=== PATIENT | male | born 1980 | race Caucasian/White ===

== ENCOUNTER 2025-01-12 10:07 | Outpatient (CLI) | payer BC, SELFPAY | END 2025-01-12 10:08 | disposition home or self-care (01) | LOC: MRI 10:08 | PROVIDERS: PCP Physician Assistant Medical; Visit Provider Physician Assistant Surgical | DX: M25.561 Pain in right knee (principal); S83.521A Sprain of posterior cruciate ligament of right knee, initial encounter; S83.411A Sprain of medial collateral ligament of right knee, initial encounter; S83.241A Other tear of medial meniscus, current injury, right knee, initial encounter; M25.461 Effusion, right knee; S89.91XA Unspecified injury of right lower leg, initial encounter | CPT/HCPCS: 73721 ==

== ENCOUNTER 2025-01-19 11:15 | Day surgery (SDC) | payer BC, SELFPAY ==
[2025-01-19] VITALS (18 sets, daily range): BP systolic 123–177; BP diastolic 77–102; PULSE 61–90; RESP 14–20; TEMP 35.8–37.1; O2SAT 95–100; BMI 26.5
--- NOTE | 2025-01-19 12:09 | W.PM.H&PU ---
History & Physical Update History & Physical Update H&P Reviewed and patient assessed: No changes noted
[2025-01-19] MEDS: SODIUM CHLORIDE 0.9 % (FLUSH) 10 ML SYRINGE IVF (12:10)
[2025-01-19] MEDS: LACTATED RINGERS 1000 ML 1,000 ML 100 ML IV (12:10)
[2025-01-19] MEDS: fentaNYL 100 MCG/2 ML inj IVP (13:00)
[2025-01-19] MEDS: MIDAZOLAM HCL 1 MG/ML inj IVP (13:00)
--- NOTE | 2025-01-19 13:07 | SUR.PREOP ---
TIME?OUT:?1255, right knee PT/RN/MDA?VERIFICATION?OF?SURGICAL?SITE,?PROCEDURE,?AND?CONSENT OBTAINED?PRIOR?TO?INVASIVE?PROCEDURE.
--- NOTE | 2025-01-19 13:16 | P.NB_ITS ---
Nerve Block Nerve Block Time Seen by Provider: 13:00 Date Seen: 01/19/25 Type of block requested by surgeon for post-operative analgesia: popliteal Side: right Time out performed: Yes Verification of patient name: Yes Verification of date of : Yes Site marking: site marked Name of person performing procedure: Jamaal Continuous monitoring Was continuous monitoring of O2 sat, B/P, professional shopper, recorded every 15 minutes?: Yes Procedure Checklist: sterile prep, needles and gloves Ultrasound guided. Images saved: Yes Medications given in 5ml increments after negative aspiration: Ropivicaine %: 0.5 mL: 20 Needle gauge: 22 Patient tolerated procedure well: Yes Additional comments: Needle noted adjacent to nerve Block Charges Block Charge (with Pro Fee): Sciatic Nerve Use of Ultrasound Machine for Block: Yes- US Guidance/pain block
--- NOTE | 2025-01-19 13:16 | P.NB_ITS ---
Nerve Block Nerve Block Time Seen by Provider: 13:00 Date Seen: 01/19/25 Type of block requested by surgeon for post-operative analgesia: femoral Side: right Time out performed: Yes Verification of patient name: Yes Verification of date of : Yes Site marking: site marked Name of person performing procedure: Jamaal Continuous monitoring Was continuous monitoring of O2 sat, B/P, court recording monitor, recorded every 15 minutes?: Yes Procedure Checklist: sterile prep, needles and gloves Ultrasound guided. Images saved: Yes Medications given in 5ml increments after negative aspiration: Ropivicaine %: 0.5 mL: 15 Needle gauge: 20 Precedex (mcg): 25 Patient tolerated procedure well: Yes Additional comments: Needle noted adjacent to nerve Block Charges Block Charge (with Pro Fee): Femoral Nerve Use of Ultrasound Machine for Block: Yes- US Guidance/pain block
[2025-01-19] MEDS: CEFAZOLIN 2 GM in 0.9 % SODIUM CHLORIDE Mini-bag 100 ML IVPB (14:07)
[2025-01-19] MEDS: TRANEXAMIC ACID 100 MG/ML INJ 1000 MG IV (14:09)
[2025-01-19] MEDS: Heparin 30,000 units/30 ml 30000 UNIT TOPICAL (14:20)
--- NOTE | 2025-01-19 15:46 | CRLHL7_ITS ---
For Patients: As a result of the Century Cures Act, medical imaging exams and procedure reports are released immediately into your electronic medical record. You may view this report before your referring provider. If you have questions, please contact your health care provider. Indication: ACL reconstruction Technique: One fluoroscopic image of the right knee. Fluoroscopic time 5.1 seconds. IMPRESSION: Fluoroscopic guidance for ACL reconstruction. Dictated by Ivan Lisa MD @ 01/21/2025 8:02:05 AM (Electronically Signed)
--- NOTE | 2025-01-19 18:04 | P.ORPRC_ITS ---
Procedure Note Date of procedure: 01/19/25 Procedure: PREOPERATIVE DIAGNOSIS: 1. Right knee ACL tear, acute, traumatic 2. Right knee MCL (extra-articular) tear, acute, complete from the femoral attachment, traumatic 3. Right knee lateral meniscus bucket-handle tear, acute, traumatic POSTOPERATIVE DIAGNOSIS: 1. Right knee ACL tear, acute, traumatic 2. Right knee MCL (extra-articular) tear, acute, complete from the femoral attachment, traumatic 3. Right knee lateral meniscus bucket-handle tear, acute, traumatic 4. Right knee medial meniscus posterior horn to midbody tear, acute, traumatic 5. Right knee posterior oblique ligament (extra-articular) tear, acute, traumatic PROCEDURE: 1. Right knee ACL arthroscopic reconstruction with independent tunnel drilling (quad tendon autograft with internal brace) 2. Bone graft/bone marrow concentrate harvest from proximal tibia via separate incision (60ml aspirated) 3. Right knee open MCL repair (extra-articular ligament #1) 4. Right knee open posterior oblique ligament repair (extra-articular ligament #2) 5. Right knee inside-out lateral meniscus repair of bucket-handle tear, complex repair 6. Right knee arthroscopic all inside medial meniscus repair SURGEON: Driss Gonzalez M.D. PATTERN WHEEL MAKER: Bhaskar Todd PA-C; Annabelle Paulino PA-C. Of note, assistants were critical for this case to aid in patient positioning, knee manipulation, instrument exchange, graft preparation, camera assistance, bone graft harvest, and closure. ANESTHESIA: Spinal plus regional block EBL: 100 mL TOURNIQUET: 120 minutes minutes at 260 torr IMPLANTS: Arthrex tight rope femoral button + button insurance account executive; Arthrex tibial ABS button; Arthrex 4.75 mm peek SwiveLock suture anchor (x2); Allosync Pure demineralized bone matrix; Arthrex Knee FiberTak anchor (x2); Arthrex all-inside fiber stitch meniscus repair device/implant (x2.... 3 were used, but 1 pulled out and therefore only 2 remained in the knee) COMPLICATIONS: None evident INDICATIONS: The patient is a pleasant 44-year-old male. They experienced a right knee trauma from a downhill skiing accident within the last 1-2 weeks. There seen in clinic. There is concern for ACL tear and MCL sprain. MRI was obtained. This confirmed the ACL, MCL, but also lateral meniscus bucket-handle tear and suspicion of a medial meniscus tear. In addition, the bucket-handle tear was flipped into the notch and therefore blocking the patient's motion consistent with a stuck knee. Therefore, surgery was indicated in a timely fashion to reconstruct the ACL, repair the MCL, repair any other meniscus tissue that could be repaired. FINDINGS: Exam under anesthesia revealed positive Blair's showing grade 2 B. Positive pivot shift. Negative dial test at 30 or 90? (symmetric). Anteromedial drawer with external rotation was slightly more unstable compared to contralateral side. Grade 3 valgus opening at 30? and notable opening even at 0? of extension. The diagnostic arthroscopy showed grade 3 chondral defect medial femoral condyle anteriorly, appeared remote without loose bodies evident. Also grade 2-3 chondromalacia trochlear groove but relatively healthy articular cartilage patella. ACL was torn completely and fallen down the tibial surface. PCL was intact and robust. Lateral meniscus was torn in a bucket-handle manner and flipped into the notch. Upon reducing this, was found to have a double tear near the midbody to anterior horn corner. The medial meniscus was also torn near the posterior medial corner from the posterior horn to midbody junction. Some capsular injury was also seen in this posterior medial corner. DESCRIPTION OF PROCEDURE: After a thorough discussion of risks, benefits, and alternatives, the patient was brought to the operating room and placed upon the operating table. Induction of anesthesia was undertaken as previously noted. 2g IV Ancef was administered within 1 hr of incision preoperatively. Appropriate time-out was performed identifying proper patient, site, and procedure. The right lower extremity was prepped and draped in the appropriate sterile fashion using ChloraPrep. Prior to tourniquet inflation, a small incision was made just lateral to tibial tubercle with a 15 blade scalpel. The Arthrex Benoit bone marrow aspiration trocar was then inserted and directed posterior and slightly proximal. 60 mL bone marrow aspiration was completed in a heparinized syringe. The volume was drawn to total 60ml of fluid for centrifugation. This was then spun in a centrifuge and bone marrow concentrate later utilized. This concentrate was mixed with Allosync Pure DBM and the autograft bone captured in the graft net device from tunnel drilling. This mixture was eventually placed into the sockets that were created for the ACL graft, as described below. After the bone marrow aspiration, the limb was exsanguinated and tourniquet inflated. A transverse incision was made approximately 1 cm proximal to the superior pole of the patella. We excised the subcutaneous fat sharply. The quad tendon was then visualized from the patellar attachment all the way more proximal towards its muscular transition. A 10mm double blade was utilized to sharply incise the quad tendon from the superior pole of patella as it was directed more proximally. This was done under direct visualization. We released it from the patella and placed it through the quad pro tendon harvester. (A partial-thickness quad tendon graft was able to be harvested due to the robustness of the patient's quad.) This was turned in quarter turns slowly with proximal directed force. We passed this up approximately 68-70 mm of tendon. The tendon was then retrieved out the side hole and the quad pro cutting mechanism engaged with a robust quad tendon harvested of approximately that same target length. The quad was reapproximated with # 2-0 Stratafix in a running, locking fashion. Meanwhile, the graft was then prepared on the back table. Anterolateral and anteromedial portals were established with an 11 blade, and a diagnostic arthroscopy was performed. This identified the findings as noted above. Following the diagnostic arthroscopy[ the lateral meniscus tear was further identified, freshened with a combination of arthroscopic shaver and arthroscopic rasp, and prepared for repair. Of note, there was a double tear to this lateral meniscus at the midbody to anterior horn junction including a longitudinal tear at the meniscocapsular junction but also 1 in the more the red-white zone. Both were felt to be repairable. Therefore, decision was made for an inside-out approach. A longitudinal incision was made overlying the lateral aspect of the knee with 1/3 proximal and 2/3 distal to the joint line. This was immediately posterior to the fibular collateral ligament region at the proximal extent of the fibular head. Sharp incision through the skin and blunt dissection is subcutaneous tissue allowed identification of the ITB band and biceps femoris. This window was opened with a Metzenbaum scissors and the synovium dissected distally towards the fibular head. The gastrocnemius lateral head was identified and a retractor placed deep to this to separate the joint capsule from the gastr ocnemius. Excellent visualization of the lateral capsule was achieved through this approach. At least 10 separate long needle SutureTape double needle devices were passed with vertical mattress type of fixation of the lateral meniscus after it was reduced. We knew she had placed multiple sutures on superior surface. Some were also passed on the inferior surface. We were able to avoid the popliteal hiatus and avoid penetrating sutures and restricting the popliteus tendon itself. The meniscus was reprobed and found to be stable with excellent control from these sutures that were all captured through the posterior lateral approach and tied independently. Further inspection of the medial meniscus showed it was torn at the posterior horn to midbody junction near some capsular injury. 2 separate all inside fiber stitch suture devices were utilized to help stabilize and reapproximate this meniscus tissue to the posterior medial capsule. This was also reprobed and found to be stable. The remaining ACL graft fibers were debrided with the shaver. ACL tunnel creation/preparation was now undertaken. Thus, a FlipCutter was utilized with a 9.5 mm graft measured and thus the same size hole created in both the femur (9.5 mm) and tibia (9.5 mm) with separate guides for independent tunnel drilling technique. After preparing the graft and drilling the tunnels, the button was passed out the lateral femoral cortex and confirmed to be flipped and apposed against the cortex with C-arm fluoroscopic imaging. After the button was passed, we utilized the autograft/allograft mixture which included autograft bone captured from the ACL tunnel drilling with the Arthrex Graft Net, the bone marrow autograft obtained from the proximal tibial plateau from the original incision over the proximal anterolateral tibia with the trocar, and the Allosync Pure demineralized bone matrix. This mixture of autograft and allograft was passed into the ACL tunnels with a beveled cannula under direct visualization. Then, the ACL graft was passed without difficulty first into the femoral socket and finally dunked into the tibial socket. After cycling the knee 35+ times with tension on the tibial sutures, we secured the tibial side internal brace sutures with the knee in full extension utilizing the peek SwiveLock suture anchor after drilling this, tapping and placing the anchor. Thereafter, the tibial ABS button was applied and secured with the knee in approximately 5? of flexion and a slight posterior drawer applied. The knee again was cycled and complete tension finalized on the femoral side again with the knee at 5? of flexion and a posterior drawer applied. A Blair test was performed again, and found to be stable. The graft and the meniscus repair was reprobed on the inside of the knee and again found to be taut and stable. The shaver was also utilized to ensure all remaining bony debris was evacuated from the medial and lateral compartments as well as suprapatellar pouch and anything anterior to the ACL graft itself. We then turned our attention to the MCL open repair. The tourniquet was deflated at this stage as it was up for approximately 120 minutes. A cur vilinear incision was made from the medial femoral epicondyle distal approximately 6 cm from the joint line in line with the MCL course. Sharp incision through skin and blunt dissection to subcutaneous tissue allowed us to identify any crossing neurologic structures warranting for protection. The sartorial fascia was then identified, but found to be significantly traumatized. It was essentially ruptured from the mid axial line along the medial knee away from the patellar tendon retinacular attachments more anteriorly. More proximally it was traumatically from the posterior medial oblique ligament. We were able to split the sartorial fascia more proximally near the medial femoral epicondyle to identify the condyle for eventual repair. The MCL was identified distally to be quality and attached to the tibial site appropriately. We tracked this more proximally and found that indeed it was injured approximately 1-2 cm from the medial femoral epicondyle. 2 separate FiberTak suture anchors were placed within the medial femoral epicondylar region. The FiberTape that was in 1 of these anchors was placed just immediately proximal and posterior to the epicondyle itself so as to be isometric for the ventral reattachment on the tibial surface. This tape was passed deep to the sartorial fascia, deep to the pes tendons, and indeed split through the distal MCL so that we could drill, tapped, and placed our anchor. This was tension with the knee in approximately 20-30 degrees of flexion, a varus load, and neutral rotation to the tibia. The 2nd knee FiberTak anchor was placed just slightly distal and posterior. A separate SutureTape was passed in a mattress fashion through the torn distal fragment of the MCL and these tails were shuttled through the knotless mechanism on this FiberTak anchor allowing excellent reapproximation/proximal pole to the MCL fibers. The remaining MCL tear was then oversewn with the suture tape to help with stabilization and reapproximation. We also identified that the posterior medial capsule and posterior oblique ligament were traumatized. Reapproximation/repair of this extra-articular ligament was also performed with multiple SutureTapes in independent fashion. We retested the external rotation with anterior drawer and found this to be stable and consistent with the contralateral side at this stage. The sartorial fascia was reapproximated along its anterior traumatized split with 2-0 Stratafix an excellent reapproximation. A separate Stratafix was utilized to reapproximate the sartorial split that we had to do to identify the MCL injury more proximally. At this stage, thorough irrigation with normal saline was performed of all incision sites and even within the knee again. The scope was placed back inside the knee and final debridement was performed including final tension of the ACL with the knee in slight flexion. Closure was completed with 2-0 Vicryl, 2-0 Stratafix, and 4-0 Monocryl to close the subcutaneous and subcuticular layers. Dressings were applied, the patient awoken from anesthesia, and transferred to the PACU in stable condition. PLAN: 1. Toe-touch weightbear operative extremity. Crutch / walker ambulation assistance PRN until quad control present at which time may advance to weightbear as tolerated if brace locked in full extension when she is more alert. 2. Ice, acetominophen and/or ibuprofen, and oxycodone for pain as needed. 3. Knee range of motion and quad sets/straight leg raise regularly, guided by physical therapy. 4. Follow up with PA visit in 1-2 weeks for a wound check.
--- NOTE | 2025-01-19 18:20 | P.ANES_ITS ---
Anesthesia Charges Start Date/Time Anesthesia Start Date: 01/19/25 Anesthesia Start Time: 13:35 Stop Date/Time Anesthesia Stop Date: 01/19/25 Anesthesia Stop Time: 18:16 Coding CPT Codes CPT Codes: ANESTH KNEE JOINT SURGERY - 86640 ([id number]) P1 - NORMAL HEALTHY PATIENT, QZ - PROFESSOR OF BUSINESS ADMINISTRATION SVC W/O TRAUMA NURSE BY
--- NOTE | 2025-01-19 18:20 | W.ANESCHARGE ---
Anesthesia Charges Start Date/Time Anesthesia Start Date: 01/19/25 Anesthesia Start Time: 13:35 Stop Date/Time Anesthesia Stop Date: 01/19/25 Anesthesia Stop Time: 18:16 Coding CPT Codes CPT Codes: ANESTH KNEE JOINT SURGERY - 27558 ([id number]) P1 - NORMAL HEALTHY PATIENT, QZ - TAI CHI INSTRUCTOR SVC W/O LINE STAKER BY
--- NOTE | 2025-01-19 18:53 | SUR.PHASEI ---
patient met discharge criteria per anesthesia
[2025-01-19] MEDS: SENNOSIDES 1 TAB TABLET 2 TAB PO (20:28)
--- NOTE | 2025-01-19 21:50 | PC.NURSE ---
Pt discharged at 2101 via private vehicle driven by . IV removed prior to discharge with catheter tip intact. Discharge instructions reviewed prior to discharge with all questions answered. Pt reports he already has all prescription medications at home. Pt denied pain and nausea before discharge and was able to tolerate regular diet. VSS prior to discharge. Pt did void before discharge. Brace worn to RLE. Pt did report numbness after surgery due to block utilized though reported numbness was decreasing prior to discharge. All personal items removed from room prior to discharge.
--- NOTE | 2025-01-21 10:52 | PC.NURSE ---
Pt called saying he had horrible pain last night which wasn't covered by scheduled Tylenol and Oxy per DC orders. Spoke with THEE Torres to see if she would be okay with him taking an additional 5mg oxycodone PRN for HS pain. She agreed to this short term and hopes in next few days need for Oxycodone should reduce. Called Erich back and informed him he could take 1 additional 5mg oxycodone for overnight break through pain if needed and educated him DVT signs/symptoms and to see the ED if this is a concern. Informed him to call clinic Wednesday if he has further concerns about pain before his 01/30 follow up with THEE Alanis.
== END 2025-01-19 21:01 | disposition home or self-care (01) ==
LOC: OR 11:16 → MEDSURG 19:57
PROVIDERS: Visit Provider Orthopaedic Surgery Sports Medicine
PROC: (CPT 29888; principal; 2025-01-19 12:45)
DX: S83.511A Sprain of anterior cruciate ligament of right knee, initial encounter (principal); S83.411A Sprain of medial collateral ligament of right knee, initial encounter; S83.251A Bucket-handle tear of lateral meniscus, current injury, right knee, initial encounter; S83.241A Other tear of medial meniscus, current injury, right knee, initial encounter; S83.521A Sprain of posterior cruciate ligament of right knee, initial encounter; G89.18 Other acute postprocedural pain
CPT/HCPCS: 29888; 20902; 27409; 29883; 01400; 64445; 64447; 73560; 76000; 76942; A9270; C1713; J0690; J1100; J1644; J1885; J2250; J2405; J2704; J3010; J7120; L1833; Q4125

== ENCOUNTER 2025-03-09 13:35 | Outpatient (CLI) | payer BC, SELFPAY ==
--- NOTE | 2025-03-09 13:45 | MR_ITS ---
EXAM:? MRI OF THE LEFT WRIST CLINICAL INFORMATION: The patient is a 44-year-old with left wrist pain. Evaluate for cyst. PRIOR SURGERY: None reported. COMPARISON STUDIES: Comparison is made to prior radiographs dated 02/27/2025. TECHNICAL INFORMATION: Imaging was produced on a high-field, 1.5 Lissy MR scanner. Coronal T1, fat-suppressed proton-density, and gradient echo imaging of the left wrist was performed in addition to sagittal fat-suppressed proton- density imaging. Axial fat-suppressed proton-density imaging was performed in addition to axial proton-density imaging. FINDINGS: Osseous structures:? Fat-suppressed imaging of the distal radius and distal ulna shows no evidence for marrow edema or cortical injury. There is no evidence for fracture.? No evidence for acute bony abnormality of the carpal structures can be seen. There is no evidence for carpal fracture or abnormality in carpal alignment. The proximal metacarpal region is within normal limits. Articulations:? A mild to moderate effusion of the distal radioulnar joint can be seen. No effusions of the radiocarpal joint or midcarpal space are present. There is no erosive change to suggest inflammatory arthritis. The CMC joints are within normal limits. Triangular fibrocartilage:? The TFCC is intact. There is no evidence of partial or full-thickness tearing. Ligaments: ?The scapholunate and lunotriquetral ligaments are intact.? The remainder of the volar and dorsal ligaments appear intact. Musculotendinous structures:? The flexor tendons are intact and normal in appearance.? The extensor tendons are intact and normal in appearance. Neurovascular structures:? The median nerve appears normal in signal intensity and morphology within the carpal tunnel. The ulnar neurovascular structures appear unremarkable. Fluid collections/Masses:? There is a fairly well-circumscribed area of soft tissue abnormality about the site of the patient's symptoms as marked by a capsule. There is a mixed signal intensity mass or collection at this site within the subcutaneous soft tissues seen on axial series 4 image 11 and on coronal series 5 image 8. The finding measures 10 mm in craniocaudal dimension, 6 mm in mediolateral dimension, and 9 mm in anteroposterior dimension. The finding is nonspecific but may relate to a complex ganglion cyst. The finding may also relate to a neural element tumor in this location. Ultrasound may be helpful in further evaluation if clinically warranted. No other soft tissue masses or abnormal fluid collections about the wrist are noted. CONCLUSION: ? 1. Nonspecific subcutaneous mass or collection at the site of the patient's symptoms as marked by a capsule. There is internal heterogeneity making a simple cyst unlikely. A complex cyst or neural element tumor may have this appearance. 2. No bony abnormalities are seen. 3. Fusion of the distal radioulnar joint. 4. The flexor and extensor tendons of the wrist appear intact. 5. No ligamentous injuries are noted. [facility] Electronically signed on 03/12/2025 9:29:00 AM by Chuck Diego M.D.
== END 2025-03-09 13:36 | disposition home or self-care (01) ==
PROVIDERS: Visit Provider Orthopaedic Surgery Sports Medicine
DX: M67.432 Ganglion, left wrist (principal)
CPT/HCPCS: 73221

== ENCOUNTER 2025-05-22 10:15 | Outpatient (CLI) | payer BC, SELFPAY | END 2025-05-22 10:16 | disposition home or self-care (01) | PROVIDERS: PCP Internal Medicine; Visit Provider Internal Medicine | DX: Z00.00 Encounter for general adult medical examination without abnormal findings (principal); Z13.228 Encounter for screening for other metabolic disorders; Z13.6 Encounter for screening for cardiovascular disorders | CPT/HCPCS: 80053; 80061 ==

== ENCOUNTER 2025-05-30 06:21 | Day surgery (SDC) | payer BC, SELFPAY ==
[2025-05-30] MEDS: LACTATED RINGERS 1000 ML 1,000 ML 100 ML IV (06:35)
[2025-05-30 06:47] VITALS: BMI 25.7
[2025-05-30 06:52] VITALS: BP 166/101; PULSE 91; RESP 16; TEMP 36.8; O2SAT 98
--- NOTE | 2025-05-30 06:58 | W.PM.H&PU ---
History & Physical Update History & Physical Update H&P Reviewed and patient assessed: No changes noted
[2025-05-30] MEDS: MIDAZOLAM HCL 1 MG/ML inj IVP (07:18)
[2025-05-30] MEDS: SODIUM CHLORIDE 0.9 % (FLUSH) 10 ML SYRINGE IVF (07:24)
--- NOTE | 2025-05-30 07:24 | SUR.PREOP ---
TIME?OUT:?0717 PT/RN/MDA?VERIFICATION?OF?SURGICAL?SITE,?PROCEDURE,?AND?CONSENT OBTAINED?PRIOR?TO?INVASIVE?PROCEDURE.
--- NOTE | 2025-05-30 08:08 | P.NB_ITS ---
Nerve Block Nerve Block Time Seen by Provider: 07:20 Date Seen: 05/30/25 Type of block requested by surgeon for post-operative analgesia: axillary Side: left Time out performed: Yes Verification of patient name: Yes Verification of date of : Yes Site marking: site marked Name of person performing procedure: Jamaal Continuous monitoring Was continuous monitoring of O2 sat, B/P, automobile parts assembler, recorded every 15 minutes?: Yes Procedure Checklist: sterile prep, needles and gloves Ultrasound guided. Images saved: Yes Medications given in 5ml increments after negative aspiration: Ropivicaine %: 0.5 mL: 10 Needle gauge: 22 and Lidocaine %: 2 mL: 15 Patient tolerated procedure well: Yes Additional comments: Needle noted adjacent to nerve Block Charges Block Charge (with Pro Fee): Brachial Plexus Use of Ultrasound Machine for Block: Yes- US Guidance/pain block
--- NOTE | 2025-05-30 08:11 | P.ANES_ITS ---
Anesthesia Charges Start Date/Time Anesthesia Start Date: 05/30/25 Anesthesia Start Time: 07:23 Stop Date/Time Anesthesia Stop Date: 05/30/25 Anesthesia Stop Time: 08:15 Coding CPT Codes CPT Codes: ANESTH LOWER ARM SURGERY - 88204 ([id number]) P1 - NORMAL HEALTHY PATIENT, QK - DRAWBRIDGE TENDER 2-4 CNCRNT ANES PROC, QX - HARNESS CLEANER SVMolly W/ MED DIRECTION
--- NOTE | 2025-05-30 08:11 | W.ANESCHARGE ---
Anesthesia Charges Start Date/Time Anesthesia Start Date: 05/30/25 Anesthesia Start Time: 07:23 Stop Date/Time Anesthesia Stop Date: 05/30/25 Anesthesia Stop Time: 08:15 Coding CPT Codes CPT Codes: ANESTH LOWER ARM SURGERY - 29127 ([id number]) P1 - NORMAL HEALTHY PATIENT, QK - INTERNATIONAL REPRESENTATIVE 2-4 CNCRNT ANES PROC, QX - GLACING MACHINE TENDER SVMolly W/ MED DIRECTION
--- NOTE | 2025-05-30 08:13 | P.ANES_ITS ---
Anesthesia Charges Start Date/Time Anesthesia Start Date: 05/30/25 Anesthesia Start Time: 07:23 Stop Date/Time Anesthesia Stop Date: 05/30/25 Anesthesia Stop Time: 08:15 Coding CPT Codes CPT Codes: ANESTH LOWER ARM SURGERY - 80604 ([id number]) P1 - NORMAL HEALTHY PATIENT, QK - STORM CHASER 2-4 CNCRNT ANES PROC, QX - BUSINESS EDITOR SVMolly W/ MED DIRECTION
--- NOTE | 2025-05-30 08:13 | W.ANESCHARGE ---
Anesthesia Charges Start Date/Time Anesthesia Start Date: 05/30/25 Anesthesia Start Time: 07:23 Stop Date/Time Anesthesia Stop Date: 05/30/25 Anesthesia Stop Time: 08:15 Coding CPT Codes CPT Codes: ANESTH LOWER ARM SURGERY - 50832 ([id number]) P1 - NORMAL HEALTHY PATIENT, QK - STRAWBERRY GROWER 2-4 CNCRNT ANES PROC, QX - PROFILING MACHINE SET UP OPERATOR SVMolly W/ MED DIRECTION
[2025-05-30 08:15] VITALS: BP 126/87; PULSE 75; RESP 20; TEMP 36.2; O2SAT 96
[2025-05-30 08:30] VITALS: BP 144/96; PULSE 71; RESP 20; O2SAT 100
--- NOTE | 2025-05-30 13:32 | P.ORPRC_ITS ---
Procedure Note Date of procedure: 05/30/25 Procedure: PREOPERATIVE DIAGNOSIS: 1. Left ulnar-sided wrist benign cyst, suspect ganglion cyst POSTOPERATIVE DIAGNOSIS: 1. Left ulnar-sided wrist benign cyst, suspect ganglion cyst PROCEDURE: 1. Left ulnar-sided wrist benign cyst open excision SURGEON: Driss Gonzalez MD. TERMITE CONTROL REPRESENTATIVE: Bhaskar Todd PA-C - Of note, an construction management assistant was critical for this case to aid in patient positioning, tissue retraction, limb manipulation/posit ioning, patient safety, & closure. ANESTHESIA: Regional block plus MAC EBL: 2 mL IMPLANTS: None TOURNIQUET: 15 minutes at 225 torr SPECIMEN: Left ulnar-sided wrist cyst COMPLICATIONS: None evident INDICATIONS: The patient is a pleasant 44-year-old male who has experienced left ulnar-sided wrist cyst formation/growth developing over number of months. This has progressively gotten larger and has become painful/symptomatic. Nonoperative management has been tried but unsuccessful. Given the failure of nonoperative management, and how this affects daily life, surgery was recommended. DESCRIPTION OF PROCEDURE: Following a thorough discussion of risks, benefits, and alternatives consent was obtained and the operative extremity was marked. The patient was brought to the operating room and placed supine on the operating table. No antibiotics were administered as this was planned to be a local case only. Proper time-out was performed identifying proper patient, site, and procedure. The operative extremity was prepped and draped in the appropriate sterile fashion using ChloraPrep. The limb was exsanguinated and the tourniquet inflated. A longitude incision was made overlying the ulnar side of the wrist centered over the cyst itself. Sharp incision through skin and blunt dissection through subcutaneous tissue allowed us to identify the cyst readily. This was mobilized from the surrounding tissues. While many cysts do appear to have a stalk going deep, this 1 did not seem to have that same type of phenomenon. Instead, the cyst was relatively for local in focalized superficially. We removed this EN bloc without rupturing it. We did proceed with further dissection in the region but did not identify any further stalk or extension of the cyst deeper. The cyst was sent for permanent pathology. At this stage, the tourniquet was deflated and hemostasis achieved. Closure was performed with 3-0 Vicryl and 4-0 Monocryl. Soft dressings were applied, and the patient was awoken/transferred to the recovery room in stable condition. PLAN: 1. Encourage elevation of the operative extremity. 2. Range of motion of the operative extremity/digits as tolerated. 3. Ibuprofen, acetaminophen and/or oxycodone as needed for pain. 4. Follow up with PA visit in 12-16 days for wound check and suture removal.
== END 2025-05-30 08:57 | disposition home or self-care (01) ==
PROVIDERS: PCP Internal Medicine; Visit Provider Orthopaedic Surgery Sports Medicine
PROC: (CPT 25111; principal; 2025-05-30 07:45)
DX: M67.431 Ganglion, right wrist (principal); G89.18 Other acute postprocedural pain
CPT/HCPCS: 25111; 01810; 64415; 76942; J0690; J1100; J2250; J2405; J2704; J2795; J3010; J7120

== ENCOUNTER 2025-10-02 13:45 | Outpatient (RCR) | payer BC, SELFPAY | END 2025-10-18 15:51 | disposition home or self-care (01) | PROVIDERS: Visit Provider Orthopaedic Surgery Sports Medicine | DX: Z48.89 Encounter for other specified surgical aftercare (principal); Z51.89 Encounter for other specified aftercare | CPT/HCPCS: 97110; 97116; 97140; 97161 ==